=== PATIENT | female | born 1935 | race Two or more races ===

== ENCOUNTER 2016-06-14 22:57 | Emergency (ER) | payer OTHER ==
[~2016-06-14] VITALS: Ht 152.4 cm; Wt 59.0 kg
[2016-06-14 23:15] VITALS: BP 152/71
== END 2016-06-15 05:00 | disposition left against medical advice (07) ==
LOC: ER 22:59
DX: M79.641 Pain in right hand (principal); M25.511 Pain in right shoulder; Z53.21 Procedure and treatment not carried out due to patient leaving prior to being seen by health care provider; W19.XXXA Unspecified fall, initial encounter; Y93.89 Activity, other specified; Y99.8 Other external cause status; Y92.89 Other specified places as the place of occurrence of the external cause
CPT/HCPCS: 73060; 73090; 93005